=== PATIENT | female | born 1990 | race African-American/Black ===

== ENCOUNTER 2017-02-15 19:01 | Emergency (ER) | payer MEDICAID, OTHER ==
[~2017-02-15 19:01] MED LIST: LO LTAB PO; PREN1PAK2 PO; PREN1TAB30; ZOLO50TA PO
[2017-02-15 19:04] VITALS: BP 146/84; PULSE 110; RESP 16; TEMP 99; O2SAT 99
[2017-02-15] MEDS ORDERED: PRENATAL VITAMIN PO (19:05)
[2017-02-15] MEDS ORDERED: ZOLO100T PO (19:05)
[2017-02-15] MEDS ORDERED: ZOLO50TA PO (19:05)
--- NOTE | 2017-02-15 19:35 | PD ---
HPI . 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 She describes it as a creamy color. She states that her boyfriend is here with similar symptoms. PFSH Past Medical History ?: Unknown LMP: PT IS UNSURE : 3 Para: 2 Social History Alcohol Use: Yes (Reports stopping at the beginning of ) Tobacco Use: Yes (Reports stopping at the beginning of ) Substance Use: Yes (HAVE USED MARIJUANA) Allergies-Medications (Allergen,Severity, Reaction): Coded Allergies: No Known Allergies (Unverified , 02/15/17) Reported Meds & Prescriptions Reported Meds & Active Scripts Active Reported [ Vitamin] 1 Tab PO DAILY Zoloft (Sertraline HCl) 100 Mg Tab 100 Mg PO HS Zoloft (Sertraline HCl) 50 Mg Tab 50 Mg PO DAILY Review of Systems Except as stated in HPI: all other systems reviewed are Neg General / Constitutional: No: Fever, Chills Genitourinary: Positive: Discharge Physical Exam Narrative GENERAL: Awake and alert and in no acute distress. SKIN: Warm and dry. HEAD: Atraumatic. Normocephalic. EYES: Pupils equal and round. NECK: Trachea midline. CARDIOVASCULAR: Regular rate and rhythm. RESPIRATORY: No accessory muscle use. : Malodorous vaginal discharge. No cervical motion tenderness. No adnexal tenderness or masses. MUSCULOSKELETAL: No obvious deformities. No edema. NEUROLOGICAL: Awake and alert. No obvious cranial nerve deficits. Motor grossly within normal limits. Normal speech. PSYCHIATRIC: Appropriate mood and affect; insight and judgment normal. Data Data Last Documented VS Vital Signs Date Time Temp Pulse Resp B/P Pulse Ox O2 Delivery O2 Flow Rate FiO2 02/15/17 19:04 99.0 110 16 146/84 99 Room Air Orders Gc And Chlamydia Pcr (02/15/17 19:13) Wet Prep Profile (02/15/17 19:13) Urinalysis - C+S If Indicated (02/15/17 19:13) Ed Urine Pregnancytest Poc (02/15/17 19:13) MDM Medical Decision Making Medical Screen Exam Complete: Yes Emergency Medical Condition: Yes Differential Diagnosis Differential diagnosis of vaginal discharge includes but is not limited to physiologic discharge, yeast infection, bacterial vaginosis, sexually transmitted disease. Narrative Course Patient presents for evaluation and treatment of vaginal discharge. Her significant other is here for treatment of a penile discharge. Patient will be treated for STDs with Rocephin and then discharged on doxycycline and Flagyl. Diagnosis Primary Impression: Cervicitis Patient Instructions: Cervicitis (DC), General Instructions Med/Other Pt SpecificInfo: Prescription(s) given Scripts Metronidazole (Flagyl)500 Mg Oxq205 Mg PO BID 7 Days Ref 0 Prov:Nikole Win MD 02/15/17 Doxycycline Hyclate 100 Mg Foz528 Mg PO BID #20 CAP Ref 0 Prov:Nikole Win MD 02/15/17 Disposition: 01 DISCHARGE HOME Condition: Stable Nikole Win MD February 15, 2017 19:35
[2017-02-15] MEDS ORDERED: cefTRIAXone 250 MG VIAL IM ONE (19:45)
[2017-02-15] MEDS ORDERED: LIDOCAINE HCL 1% 50 ML VIAL XX ONE (19:45)
[2017-02-15] MEDS ORDERED: METR-1 PO (19:47)
[2017-02-15] MEDS ORDERED: DOXY100C PO (19:47)
[2017-02-15 20:00] LABS: BACTERIA, URINE RARE /hpf; BLOOD, URINE NEG (NEG); COMMENT (UR) CULT NOT INDICATED; CULTURE IF INDICATED CULT NOT INDICATED; GLUCOSE,URINE NEG (NEG); KETONE, URINE NEG (NEG); NITRITE,URINE NEG (NEG); SQUAMOUS EPITHELIAL CELL URINE 2 /hpf (0-5); URINE COLOR LIGHT-YELLOW (YELLW/STRAW)
[2017-02-15 22:44] LABS: CHLAMYDIA PCR DETECTED (NOT DETECT); NEISSERIA PCR DETECTED (NOT DETECT)
== END 2017-02-15 20:18 | disposition home or self-care (01) ==
LOC: NEPD 19:01
DX: N72 Inflammatory disease of cervix uteri (principal); F12.90 Cannabis use, unspecified, uncomplicated
CPT/HCPCS: 81001; 84703; 87210; 87491; 87591; 96372; 99284; J0696